=== PATIENT | male | born 1940 | race African-American/Black ===

== ENCOUNTER 2021-11-07 13:10 | Inpatient (IN) | payer MEDICARE, OTHER ==
[~2021-11-07] VITALS: Ht 167.6 cm; Wt 92.6 kg
[2021-11-07 14:03] LABS: HEMATOCRIT. 37.2 % (42.0-52.0); HEMOGLOBIN. 12.1 g/dL (14.0-18.0); MEAN CORPUSCULAR HEMOGLOBIN 29.4 pg (28.0-32.0); MEAN CORPUSCULAR VOLUME 90.2 fL (80.0-94.0); MEAN PLATELET VOLUME 9.2 fl (7.4-10.4); PLATELET 218 x1000/uL (130-400); RED BLOOD CELL COUNT 4.13 mill/uL (4.7-6.1); RED CELL DISTRIBUTION WIDTH 16.4 % (11.6-14.6)
[2021-11-07 14:24] LABS: PLATELET ESTIMATE NORMAL
[2021-11-07] MEDS ORDERED: MORPHINE SULFATE 4 MG/ML CPJ (NOT FOR IM USE) IV ONE (15:45)
[2021-11-07] MEDS ORDERED: NITROGLYCERIN 0.4MG TABLET SL SL ONE (15:45)
[2021-11-07 16:16] LABS: CHLORIDE 113 mEq/L (98-107)
[2021-11-07] MEDS ORDERED: SODIUM CHLORIDE 0.9% 250 ML IV NR (16:45)
[2021-11-07] MEDS ORDERED: CEFTRIAXONE 1 G PREMIX 50 ML IV NR (16:45)
[2021-11-07] MEDS ORDERED: AZITHROMYCIN 500 MG in DEXT 5% WATER 250 ML IV SCH (17:00)
[2021-11-07] MEDS ORDERED: MAGNESIUM/ALUMINUM HYDROXIDE/SIMETHICONE 30ML UDC PO PRN (18:45)
[2021-11-07] MEDS ORDERED: CLONIDINE 0.1MG TABLET PO PRN (18:45)
[2021-11-07] MEDS ORDERED: MORPHINE SULFATE 4 MG/ML CPJ (NOT FOR IM USE) IV PRN (18:45)
[2021-11-07] MEDS ORDERED: ONDANSETRON HCL 4MG/2ML INJ IV PRN (18:45)
[2021-11-07] MEDS ORDERED: ACETAMINOPHEN 325MG TABLET PO PRN (18:45)
[2021-11-07] MEDS ORDERED: DIPHENHYDRAMINE 50MG/ML VIAL IV PRN (18:45)
[2021-11-07] MEDS ORDERED: IOHEXOL-350 100 ML BOTTLE ONE (21:03)
[2021-11-07] MEDS: SODIUM CHLORIDE 0.9% INJ 3ML FLUSH IVF SCH (21:22)
[2021-11-08 01:55] VITALS: BP 153/81
[2021-11-08] MEDS: ZOLPIDEM TARTRATE 5MG TABLET PO PRN ×2 (02:46→21:03)
[2021-11-08 04:00] VITALS: BP 140/62
[2021-11-08] MEDS: SODIUM CHLORIDE 0.9% INJ 3ML FLUSH IVF SCH ×3 (05:56→21:05)
[2021-11-08 08:00] VITALS: BP 155/64
[2021-11-08 12:00] VITALS: BP 141/63
[2021-11-08] MEDS: ASPIRIN 81MG TABLET PO SCH (14:24)
[2021-11-08 16:00] VITALS: BP 156/77
[2021-11-08] MEDS: ENOXAPARIN 100MG/ML SYR SUBCUT SCH (16:32)
[2021-11-08 17:13] LABS: INR 1.1; PROTHROMBIN TIME 11.7 sec (9.6-11.0)
[2021-11-08] MEDS ORDERED: ENOXAPARIN 30MG/0.3ML SYR SUBCUT SCH (18:00)
[2021-11-08 20:00] VITALS: BP 139/65
[2021-11-08] MEDS ORDERED: ATORVASTATIN CALCIUM 20MG TABLET PO SCH (21:00)
[2021-11-08] MEDS: AMLODIPINE 2.5MG TABLET PO SCH (21:04)
[2021-11-09] VITALS: BP 142/76
[2021-11-09 04:00] VITALS: BP 153/73
[2021-11-09] MEDS: ENOXAPARIN 100MG/ML SYR SUBCUT SCH (05:01)
[2021-11-09] MEDS: ACETAMINOPHEN 325MG TABLET PO PRN ×2 (05:02→09:03)
[2021-11-09] MEDS: SODIUM CHLORIDE 0.9% INJ 3ML FLUSH IVF SCH ×2 (05:02→14:54)
[2021-11-09] MEDS ORDERED: AMLO10TA80 MT (05:46)
[2021-11-09] MEDS ORDERED: ALLO300T2 MT (05:46)
[2021-11-09] MEDS ORDERED: TERA2CAP4 MT (05:46)
[2021-11-09] MEDS ORDERED: ATEN100T MT (05:46)
[2021-11-09] MEDS ORDERED: LEVO75TA7 MT (05:46)
[2021-11-09 08:00] VITALS: BP 134/62
[2021-11-09] MEDS: AMLODIPINE 2.5MG TABLET PO SCH (08:56)
[2021-11-09] MEDS: ASPIRIN 81MG TABLET PO SCH (08:56)
[2021-11-09] MEDS ORDERED: ATENOLOL 50 MG TABLET PO SCH (10:45)
[2021-11-09 12:00] VITALS: BP 142/72
[2021-11-09] MEDS ORDERED: ALLOPURINOL 300 MG TABLET PO SCH (12:00)
[2021-11-09] MEDS ORDERED: LEVOFLOXACIN 500MG PREMIX 100 ML IV SCH (12:00)
[2021-11-09 15:10] VITALS: BP 148/77
[2021-11-09 15:30] VITALS: BP 148/77
[2021-11-09] MEDS ORDERED: AMLODIPINE 5MG TABLET PO SCH (21:00)
[2021-11-09] MEDS ORDERED: TERAZOSIN HCL 1MG CAPSULE PO SCH (21:00)
[2021-11-10] MEDS ORDERED: LEVOTHYROXINE SODIUM 75MCG TABLET PO SCH (07:10)
== END 2021-11-09 16:45 | disposition short-term general hospital (02) | DRG 176 ==
LOC: ER 13:32 → 8WST 17:19 → EDBEDREQTM 17:23 → EDBEDREQ 17:23 → ENRESERV 23:25
PROVIDERS: ADMIT Internal Medicine; ATTEND Internal Medicine
DX: I26.99 Other pulmonary embolism without acute cor pulmonale (principal); E78.00 Pure hypercholesterolemia, unspecified; E78.5 Hyperlipidemia, unspecified; I10 Essential (primary) hypertension; I25.10 Atherosclerotic heart disease of native coronary artery without angina pectoris; R07.89 Other chest pain; J20.9 Acute bronchitis, unspecified; Z20.822 Contact with and (suspected) exposure to COVID-19; M10.9 Gout, unspecified; Z79.899 Other long term (current) drug therapy; I25.2 Old myocardial infarction
CPT/HCPCS: 36415; 71045; 71250; 78582; 80053; 83605; 83880; 84484; 85025; 85379; 87426; 93005; 93306; 93970; 99291; A9558; J0456; J0696; J1650; J1956; J2270; J7060; Q9967

== ENCOUNTER 2021-11-21 07:59 | Emergency (ER) | payer OTHER ==
[~2021-11-21] VITALS: Ht 172.7 cm; Wt 85.0 kg
[~2021-11-21 07:59] MED LIST: ALLO300T2 MT; AMLO10TA80 MT; ATEN100T MT; LEVO75TA7 MT; TERA2CAP4 MT
[2021-11-21] MEDS ORDERED: IPRATROPIUM BROMIDE (0.02%) 0.5MG/2.5ML NEB HHN STA (08:34)
[2021-11-21] MEDS ORDERED: ALBUTEROL (0.083%) 2.5MG/3ML NEB HHN STA (08:34)
[2021-11-21 08:52] LABS: HEMATOCRIT. 27.5 % (42.0-52.0); HEMOGLOBIN. 8.7 g/dL (14.0-18.0); MEAN CORPUSCULAR HEMOGLOBIN 29.6 pg (28.0-32.0); MEAN CORPUSCULAR VOLUME 93.6 fL (80.0-94.0); MEAN PLATELET VOLUME 9.1 fl (7.4-10.4); PLATELET 519 x1000/uL (130-400); RED BLOOD CELL COUNT 2.94 mill/uL (4.7-6.1); RED CELL DISTRIBUTION WIDTH 16.6 % (11.6-14.6)
[2021-11-21 08:53] LABS: CHLORIDE 108 mEq/L (98-107)
[2021-11-21 09:21] LABS: INR 1.2; PARTIAL THROMBOPLASTIN TIME 25.2 sec (23.4-31.0)
[2021-11-21 09:35] LABS: PLATELET ESTIMATE INCREASED
[2021-11-21] MEDS ORDERED: LEVOFLOXACIN 500MG PREMIX 100 ML IV ONE (10:00)
[2021-11-21] MEDS ORDERED: FUROSEMIDE 20MG/2ML VIAL IVP ONE (10:00)
[2021-11-21] MEDS ORDERED: ENOXAPARIN 100MG/ML SYR SUBCUT ONE (10:00)
[2021-11-21 12:53] VITALS: BP 118/78
== END 2021-11-21 13:40 | disposition short-term general hospital (02) ==
LOC: EDBEDREQ 08:26 → ER 08:35 → CANBEDREQ 13:23 → ER 13:40
DX: I11.0 Hypertensive heart disease with heart failure (principal); I50.9 Heart failure, unspecified; J18.0 Bronchopneumonia, unspecified organism; E78.00 Pure hypercholesterolemia, unspecified; Z20.822 Contact with and (suspected) exposure to COVID-19; Z86.711 Personal history of pulmonary embolism
CPT/HCPCS: 36415; 71045; 80053; 83605; 83880; 84484; 85025; 85610; 85730; 87040; 87086; 87426; 93005; 94640; 96365; 96372; 96375; 99285; J1650; J1940; J1956